=== PATIENT | female | born 1960 ===

== ENCOUNTER 2021-01-20 08:57 | Outpatient (CLI) | payer OTHER | END 2021-01-20 08:58 | disposition home or self-care (01) | LOC: NUCLEAR 08:57 | PROVIDERS: ATTEND Internal Medicine Cardiovascular Disease | DX: I87.2 Venous insufficiency (chronic) (peripheral) (principal) ==

== ENCOUNTER 2021-01-20 11:03 | Outpatient (CLI) | payer OTHER | END 2021-01-20 11:13 | disposition home or self-care (01) | LOC: RAD 11:03 | PROVIDERS: ATTEND Internal Medicine Cardiovascular Disease | DX: M41.85 Other forms of scoliosis, thoracolumbar region (principal); M12.88 Other specific arthropathies, not elsewhere classified, other specified site ==

== ENCOUNTER 2024-09-24 13:01 | Outpatient (CLI) | payer OTHER | END 2024-09-24 13:08 | disposition home or self-care (01) | LOC: TOM 13:01 | PROVIDERS: ATTEND Internal Medicine Gastroenterology | DX: Z12.31 Encounter for screening mammogram for malignant neoplasm of breast (principal) ==